=== PATIENT | male | born 1995 | race African-American/Black ===

== ENCOUNTER 2017-07-27 15:58 | Emergency (ER) | payer SELFPAY ==
[~2017-07-27 15:58] MED LIST: HYDR-3533 PO; IBUP800T23 PO; METHO500 PO
[2017-07-27 16:05] VITALS: BP 136/67; PULSE 88; RESP 16; TEMP 98.9; O2SAT 99
--- NOTE | 2017-07-27 17:00 | PD ---
HPI Chief Complaint: Medical Clearance Time Seen by Provider: 16:46 Travel History International Travel<30 days: No Contact w/Intl Traveler<30days: No Traveled to known affect area: No History of Present Illness HPI 22-year-old male presents to the emergency department requesting HIV testing. He said that his girlfriend called him today and said she was tested at 1 of the hospitals and she tested positive. Symptoms are mild in severity. No known aggravating or relieving factors. Onset unknown. Duration unknown. No primary care provider. No known allergies. Denies significant past medical history. Has no other medical complaints. No other modifying factors or associated signs and symptoms. Allergies-Medications (Allergen,Severity, Reaction): Coded Allergies: No Known Allergies (Verified , 07/03/14) Reported Meds & Prescriptions Reported Meds & Active Scripts Active Review of Systems Except as stated in HPI: all other systems reviewed are Neg Physical Exam Narrative GENERAL: Well-nourished, well-developed black male patient, in no acute distress SKIN: Warm and dry. HEAD: Atraumatic. Normocephalic. EYES: Pupils equal and round. No scleral icterus. No injection or drainage. ENT: Mucosa pink and moist. Airway patent. NECK: Trachea midline. CARDIOVASCULAR: Regular rate. RESPIRATORY: No accessory muscle use. GASTROINTESTINAL: Flat. MUSCULOSKELETAL: No obvious deformities. No clubbing. No cyanosis. No edema. NEUROLOGICAL: Awake and alert. Oriented 3. No obvious cranial nerve deficits. Motor grossly within normal limits. Normal speech. PSYCHIATRIC: Appropriate mood and affect; insight and judgment normal. Data Data Last Documented VS Vital Signs Date Time Temp Pulse Resp B/P (MAP) Pulse Ox O2 Delivery O2 Flow Rate FiO2 07/27/17 16:05 98.9 88 16 136/67 (90) 99 MDM Medical Screen Exam Complete: Yes Emergency Medical Condition: No Differential Diagnosis HIV screen Narrative Course 22-year-old male requesting testing for HIV. His girlfriend called him and told him that she tested positive today for HIV at 1 of the hospitals. Patient provided [facility] for [facility]. Vital signs are stable and the patient is stable for outpatient follow- up and treatment. The patient has no urgent or emergent medical complaints. There is no emergent or urgent medical need at this time. I instructed the patient to follow up with their primary care provider. A medical screening exam was performed: At the time of evaluation the presenting medical condition was determined not to be of an emergent nature. The patient was given the option of receiving additional care, but declined. Patient was given options for additional community resources from which to obtain care. The Patient Has Been advised to seek medical attention for their presenting complaint. The patient has been advised to return to the ER at any time if an emergent condition develops. Primary Impression: Encounter for medical screening examination Condition: Stable Debbi Mcgill [facility] July 27, 2017 17:00
== END 2017-07-27 17:02 | disposition left against medical advice (07) ==
LOC: NEPD 15:58
DX: Z20.6 Contact with and (suspected) exposure to human immunodeficiency virus [HIV] (principal)
CPT/HCPCS: 99281